=== PATIENT | male | born 1955 | race Caucasian/White ===

== ENCOUNTER 2024-06-21 06:32 | Inpatient (IN) | payer OTHER ==
[2024-06-21] MEDS ORDERED: ACETAMINOPHEN 650 MG/20.3 ML ORAL SOLUTION (CUPS) ONE (08:08)
[2024-06-21] MEDS ORDERED: morphine SULFATE 10 MG/5 ML UNIT-DOSE CUP ONE (08:11)
[2024-06-21] MEDS: morphine SULFATE 10 MG/5 ML UNIT-DOSE CUP PO ONE (08:13)
[2024-06-21] MEDS: ACETAMINOPHEN 650 MG/20.3 ML ORAL SOLUTION (CUPS) PO ONE (08:14)
[2024-06-21] MEDS ORDERED: SERTRALINE HCL 50 MG TABLET (FP) ONE (09:34)
[2024-06-21] MEDS ORDERED: ENOXAPARIN NA (PORCINE) 40 MG/0.4 ML DISP.SYRIN SQ ONE (09:34)
[2024-06-21] MEDS: ENOXAPARIN NA (PORCINE) 40 MG/0.4 ML DISP.SYRIN SQ SCH (09:37)
[2024-06-21] MEDS: SERTRALINE HCL 50 MG TABLET (FP) PO SCH (09:38)
[2024-06-21] MEDS: clonazePAM 2 MG TABLET PO PRN (19:23)
[2024-06-22] MEDS: methaDONE HCL 40 MG DISPERSABLE TABLET PO SCH (05:30)
[2024-06-22] MEDS: clonazePAM 0.5 MG TABLET PO PRN (08:54)
[2024-06-22] MEDS: guaiFENesin 200 MG/10 ML 10 ML UNIT-DOSE CUPS PO PRN (13:08)
[2024-06-23 15:48] VITALS: BMI 24.1
[2024-06-24] MEDS ORDERED: ACETAMINOPHEN 1000 MG/100 ML BAG IVPB PRN (18:51)
[2024-06-24] MEDS: ACETAMINOPHEN 325 MG TABLET (FP) PO PRN (19:11)
[2024-06-25 06:36] VITALS: RESP 18
[2024-06-25] MEDS: clonazePAM 0.25 MG ODT TABLETS SL PRN (10:40)
[2024-06-25] MEDS ORDERED: HYOSCYAMINE SULFATE 0.125 MG *ODT PO PRN (11:15)
[2024-06-25 14:43] VITALS: BP 102/62; PULSE 99; TEMP 99.5
== END 2024-06-25 15:31 | disposition hospice, inpatient (51) | DRG 146 ==
LOC: JER 06:32 → JERBED 07:46 → OBSVTOIN 09:17 → J7W 13:51
PROVIDERS: ADMIT Internal Medicine; ATTEND Nurse Practitioner
DX: C76.0 Malignant neoplasm of head, face and neck (principal); E43 Unspecified severe protein-calorie malnutrition; F11.20 Opioid dependence, uncomplicated; C14.0 Malignant neoplasm of pharynx, unspecified; R06.02 Shortness of breath; R62.7 Adult failure to thrive; F41.8 Other specified anxiety disorders; R47.9 Unspecified speech disturbances; G47.00 Insomnia, unspecified; R13.10 Dysphagia, unspecified; G89.3 Neoplasm related pain (acute) (chronic); Z68.24 Body mass index [BMI] 24.0-24.9, adult; Z66 Do not resuscitate; Z51.5 Encounter for palliative care
CPT/HCPCS: 87635; 93005; 93010; 99285-25; G0378